=== PATIENT | female | born 1975 | race Caucasian/White ===

== ENCOUNTER → 2020-09-29 | Outpatient (CLI) | payer MEDICARE, OTHER ==
[~2020-09-29] MED LIST: CIPRO500 MG PO; FLOMAX 0.4 MG0.4 MG PO; HYDROCODON-ACE1 EAC2 PO; NAPROSYN500 MG PO; NORCO 5-325 TA1 EACH PO; ONDANSETRON ODT4 MG SL; PERCOCET 5-3251 EACH PO; ZOFRAN ODT 4 MG4 MG SL
== END ==
LOC: CT 07:22
DX: N20.0 Calculus of kidney (principal); R35.1 Nocturia
CPT/HCPCS: 36415; 82565; Q9967

== ENCOUNTER → 2020-10-12 | Outpatient (CLI) | payer MEDICARE, OTHER | LOC: SLEEP 13:24 | DX: G47.30 Sleep apnea, unspecified (principal) | CPT/HCPCS: 95810 ==

== ENCOUNTER → 2020-11-20 | Outpatient (CLI) | payer MEDICARE, OTHER ==
[2020-11-20 12:43] LABS: HEMOGLOBIN 13.5 gm/dl (12.3-15.3); RED BLOOD COUNT 4.42 M/UL (4.00-5.10); WHITE BLOOD COUNT 6.2 K/UL (4.5-11.0)
[2020-11-20 13:10] LABS: BUN/CREATININE RATIO 28 (0-10)
== END ==
LOC: LAB 11:45
PROVIDERS: Nurse Practitioner
DX: N20.0 Calculus of kidney (principal); E55.9 Vitamin D deficiency, unspecified; R53.83 Other fatigue; G35 Multiple sclerosis; R53.1 Weakness; E83.59 Other disorders of calcium metabolism; N29 Other disorders of kidney and ureter in diseases classified elsewhere; E53.1 Pyridoxine deficiency; E53.8 Deficiency of other specified B group vitamins
CPT/HCPCS: 36415; 74018; 80053; 82525; 82607; 82746; 84207; 84425; 84443; 85025

== ENCOUNTER → 2021-03-22 | Outpatient (CLI) | payer MEDICARE | LOC: KOH-I 13:38 | DX: G35 Multiple sclerosis (principal) | CPT/HCPCS: 70551; 72141 ==

== ENCOUNTER 2021-04-17 11:12 | Inpatient (IN) | payer MEDICARE ==
[~2021-04-17] VITALS: Ht 152.4 cm; Wt 106.0 kg
[2021-04-17 12:34] LABS: HEMOGLOBIN 15.2 gm/dl (12.3-15.3); RED BLOOD COUNT 4.92 M/UL (4.00-5.10); WHITE BLOOD COUNT 8.2 K/UL (4.5-11.0)
[2021-04-17 12:56] LABS: BUN/CREATININE RATIO 17 (0-10)
[2021-04-17] MEDS ORDERED: AUBAGIO14 MG PO (14:35)
[2021-04-17] MEDS ORDERED: ZOFRAN ODT 4 MG4 MG PO (14:35)
[2021-04-17] MEDS ORDERED: AMPYRA10 MG PO (14:36)
[2021-04-17] MEDS ORDERED: BACLOFEN20 MG PO (14:36)
[2021-04-17] MEDS ORDERED: MUPIROCIN22 GM TP (14:36)
[2021-04-17] MEDS ORDERED: LISINOPRIL5 MG PO (14:37)
[2021-04-17] MEDS ORDERED: CYMBALTA 30 MG30 MG PO (14:37)
[2021-04-17] MEDS ORDERED: GABAPENTIN600 MG PO (14:37)
[2021-04-17] MEDS ORDERED: BUPROPION HCL150 MG PO (14:38)
[2021-04-17] MEDS ORDERED: FARXIGA10 MG PO (14:38)
[2021-04-17] MEDS ORDERED: ROPINIROLE HCL1 MG PO (14:39)
[2021-04-17] MEDS ORDERED: CRESTOR10 MG PO (14:39)
[2021-04-17] MEDS ORDERED: LANTUS SOL100 UNIT/1 SQ (14:40)
[2021-04-17] MEDS ORDERED: MELOXICAM15 MG PO (14:40)
[2021-04-17] MEDS ORDERED: MACROBID 100 M100 M1 PO (14:41)
[2021-04-17] MEDS ORDERED: NOVOLIN 70100 UNIT/1 SQ (14:41)
[2021-04-17] MEDS ORDERED: AMITRIPTYLINE H50 MG PO (14:42)
[2021-04-17] MEDS ORDERED: VITAMIN D21250 MCG PO (14:42)
[2021-04-17] MEDS ORDERED: CYCLOBENZAPRINE10 MG PO (14:42)
[2021-04-17] MEDS ORDERED: CHLORTHALIDONE25 MG PO (14:43)
[2021-04-17] MEDS ORDERED: PROTONIX40 MG PO (14:43)
[2021-04-17] MEDS ORDERED: LEVOTHYROXINE50 MCG PO (14:43)
[2021-04-18 06:26] LABS: HEMOGLOBIN 13.2 gm/dl (12.3-15.3); RED BLOOD COUNT 4.33 M/UL (4.00-5.10); WHITE BLOOD COUNT 5.6 K/UL (4.5-11.0)
[2021-04-18 06:51] LABS: BUN/CREATININE RATIO 36 (0-10)
[2021-04-19 06:27] LABS: BUN/CREATININE RATIO 49 (0-10)
[2021-04-20 07:07] LABS: HEMOGLOBIN 13.4 gm/dl (12.3-15.3); RED BLOOD COUNT 4.58 M/UL (4.00-5.10)
[2021-04-20 07:11] LABS: BUN/CREATININE RATIO 53 (0-10)
[2021-04-21 05:29] LABS: HEMOGLOBIN 12.9 gm/dl (12.3-15.3); RED BLOOD COUNT 4.38 M/UL (4.00-5.10); WHITE BLOOD COUNT 11.8 K/UL (4.5-11.0)
[2021-04-21 05:51] LABS: BUN/CREATININE RATIO 59 (0-10)
[2021-04-22 05:21] LABS: HEMOGLOBIN 13.6 gm/dl (12.3-15.3); RED BLOOD COUNT 4.52 M/UL (4.00-5.10); WHITE BLOOD COUNT 9.8 K/UL (4.5-11.0)
[2021-04-22 06:03] LABS: BUN/CREATININE RATIO 57 (0-10)
[2021-04-23 05:04] LABS: HEMOGLOBIN 14.8 gm/dl (12.3-15.3); RED BLOOD COUNT 4.88 M/UL (4.00-5.10); WHITE BLOOD COUNT 11.7 K/UL (4.5-11.0)
[2021-04-23 05:23] LABS: BUN/CREATININE RATIO 56 (0-10)
[2021-04-24 04:53] LABS: HEMOGLOBIN 13.5 gm/dl (12.3-15.3); RED BLOOD COUNT 4.66 M/UL (4.00-5.10)
[2021-04-24 04:54] LABS: BUN/CREATININE RATIO 53 (0-10)
[2021-04-24 04:58] LABS: WHITE BLOOD COUNT 15.1 K/UL (4.5-11.0)
[2021-04-25 05:05] LABS: HEMOGLOBIN 14.7 gm/dl (12.3-15.3); RED BLOOD COUNT 4.86 M/UL (4.00-5.10)
[2021-04-25 05:07] LABS: WHITE BLOOD COUNT 10.4 K/UL (4.5-11.0)
[2021-04-25 05:47] LABS: BUN/CREATININE RATIO 63 (0-10)
[2021-04-26 07:43] LABS: HEMOGLOBIN 15.6 gm/dl (12.3-15.3); WHITE BLOOD COUNT 12.5 K/UL (4.5-11.0)
[2021-04-26 07:45] LABS: RED BLOOD COUNT 5.48 M/UL (4.00-5.10)
[2021-04-26 08:10] LABS: BUN/CREATININE RATIO 86 (0-10)
[2021-04-27 05:12] LABS: HEMOGLOBIN 16.5 gm/dl (12.3-15.3); RED BLOOD COUNT 5.52 M/UL (4.00-5.10); WHITE BLOOD COUNT 10.9 K/UL (4.5-11.0)
[2021-04-27 05:35] LABS: BUN/CREATININE RATIO 94 (0-10)
[2021-04-28 05:49] LABS: RED BLOOD COUNT 4.98 M/UL (4.00-5.10); WHITE BLOOD COUNT 9.9 K/UL (4.5-11.0)
[2021-04-28 05:52] LABS: HEMOGLOBIN 14.5 gm/dl (12.3-15.3)
[2021-04-28 06:04] LABS: BUN/CREATININE RATIO 47 (0-10)
[2021-04-29 05:32] LABS: HEMOGLOBIN 15.6 gm/dl (12.3-15.3); RED BLOOD COUNT 5.2 M/UL (4.00-5.10)
[2021-04-29 05:45] LABS: BUN/CREATININE RATIO 45 (0-10)
[2021-04-30 04:51] LABS: BUN/CREATININE RATIO 43 (0-10)
[2021-04-30 04:52] LABS: HEMOGLOBIN 15.2 gm/dl (12.3-15.3); WHITE BLOOD COUNT 12.1 K/UL (4.5-11.0)
--- NOTE | 2021-04-30 10:59 | NUR ---
0925 MD AT BEDSIDE, AMNA 1CC GIVEN 0925 MD AT BEDSIDE, ANE. AT BEDSIDE FOR INTUBATION 09 PROPOFOL 10ML GIVEN 927 PROPOFOL 5ML GIVEN 928 PROPOFOL 10ML GIVEN 929 PROPOFOL 10ML GIVEN 931 INTUBATED 22 AT LIP, SATS 92%, SEE RESP FOR VENT SETTTINGS 0935 CHEST XRAY CONFIRMED PLACEMENT 0938 METOPROLOL IV 5 GIVEN
[2021-05-01 09:56] LABS: HEMOGLOBIN 14.8 gm/dl (12.3-15.3); RED BLOOD COUNT 4.86 M/UL (4.00-5.10)
[2021-05-01 09:57] LABS: WHITE BLOOD COUNT 25.6 K/UL (4.5-11.0)
[2021-05-01 10:21] LABS: BUN/CREATININE RATIO 48 (0-10)
[2021-05-02 05:57] LABS: HEMOGLOBIN 13.6 gm/dl (12.3-15.3); RED BLOOD COUNT 4.66 M/UL (4.00-5.10)
[2021-05-02 06:04] LABS: WHITE BLOOD COUNT 13.5 K/UL (4.5-11.0)
[2021-05-02 06:42] LABS: BUN/CREATININE RATIO 32 (0-10)
[2021-05-03 05:47] LABS: HEMOGLOBIN 12.3 gm/dl (12.3-15.3); RED BLOOD COUNT 4.24 M/UL (4.00-5.10); WHITE BLOOD COUNT 16.7 K/UL (4.5-11.0)
[2021-05-03 06:10] LABS: BUN/CREATININE RATIO 55 (0-10)
[2021-05-04 05:47] LABS: HEMOGLOBIN 12.9 gm/dl (12.3-15.3); RED BLOOD COUNT 4.24 M/UL (4.00-5.10); WHITE BLOOD COUNT 16.8 K/UL (4.5-11.0)
[2021-05-04 05:53] LABS: BUN/CREATININE RATIO 57 (0-10)
[2021-05-05 05:52] LABS: HEMOGLOBIN 12.5 gm/dl (12.3-15.3); RED BLOOD COUNT 4.14 M/UL (4.00-5.10)
[2021-05-05 06:07] LABS: WHITE BLOOD COUNT 9.9 K/UL (4.5-11.0)
[2021-05-05 06:18] LABS: BUN/CREATININE RATIO 49 (0-10)
[2021-05-06 05:52] LABS: HEMOGLOBIN 13.5 gm/dl (12.3-15.3); RED BLOOD COUNT 4.5 M/UL (4.00-5.10)
[2021-05-06 05:57] LABS: WHITE BLOOD COUNT 21.1 K/UL (4.5-11.0)
[2021-05-06 06:52] LABS: BUN/CREATININE RATIO 44 (0-10)
[2021-05-07 04:55] LABS: HEMOGLOBIN 12.2 gm/dl (12.3-15.3); RED BLOOD COUNT 4.07 M/UL (4.00-5.10)
[2021-05-07 05:08] LABS: WHITE BLOOD COUNT 15.5 K/UL (4.5-11.0)
[2021-05-07 05:10] LABS: BUN/CREATININE RATIO 64 (0-10)
[2021-05-08 04:55] LABS: HEMOGLOBIN 11.4 gm/dl (12.3-15.3); RED BLOOD COUNT 3.87 M/UL (4.00-5.10)
[2021-05-08 05:01] LABS: WHITE BLOOD COUNT 10.8 K/UL (4.5-11.0)
[2021-05-08 05:17] LABS: BUN/CREATININE RATIO 105 (0-10)
[2021-05-09 05:36] LABS: HEMOGLOBIN 10.8 gm/dl (12.3-15.3); RED BLOOD COUNT 3.61 M/UL (4.00-5.10)
[2021-05-09 05:59] LABS: BUN/CREATININE RATIO 118 (0-10)
[2021-05-10 05:26] LABS: RED BLOOD COUNT 3.4 M/UL (4.00-5.10)
[2021-05-10 05:52] LABS: BUN/CREATININE RATIO 135 (0-10)
[2021-05-11 05:28] LABS: HEMOGLOBIN 10.2 gm/dl (12.3-15.3); RED BLOOD COUNT 3.39 M/UL (4.00-5.10); WHITE BLOOD COUNT 5.7 K/UL (4.5-11.0)
[2021-05-11 05:46] LABS: BUN/CREATININE RATIO 110 (0-10)
[2021-05-12 05:10] LABS: HEMOGLOBIN 10.3 gm/dl (12.3-15.3); RED BLOOD COUNT 3.5 M/UL (4.00-5.10)
[2021-05-12 05:21] LABS: WHITE BLOOD COUNT 7.3 K/UL (4.5-11.0)
[2021-05-12 05:36] LABS: BUN/CREATININE RATIO 106 (0-10)
[2021-05-13 05:47] LABS: BUN/CREATININE RATIO 89 (0-10)
[2021-05-13 12:39] LABS: HEMOGLOBIN 11.1 gm/dl (12.3-15.3); RED BLOOD COUNT 3.69 M/UL (4.00-5.10); WHITE BLOOD COUNT 7.1 K/UL (4.5-11.0)
[2021-05-14 05:44] LABS: BUN/CREATININE RATIO 72 (0-10)
[2021-05-14 10:21] LABS: ADENOVIRUS F 40/41 Not Detected (Negative); ASTROVIRUS Not Detected (Negative); CAMPYLOBACTER Not Detected (Negative); CRYPTOSPORIDIUM Not Detected (Negative); E.COLI 0157 Not Detected (Negative); ENTAMOEBA HISTOLYTICA Not Detected (Negative); ENTEROAGGREGATIVE E.COLI (EAEC Not Detected (Negative); ENTEROPATHOGENIC E.COLI (EPEC) Not Detected (Negative); ENTEROTOXIGENIC E.COLI (ETEC) Not Detected (Negative); GIARDIA LAMBLIA Not Detected (Negative); NOROVIRUS GI/GII Not Detected (Negative); PLESIOMONAS SHIGELLOIDES Not Detected (Negative); ROTOVIRUS A Not Detected (Negative); SALMONELLA Not Detected (Negative); SAPOVIRUS Not Detected (Negative); SHIG/ENTEROINVAS.ECOLI (EIEC) Not Detected (Negative); SHIGA-LIK TOX.PRO.E.COLI (STEC Not Detected (Negative); VIBRIO Not Detected (Negative); VIBRIO CHOLERAE Not Detected (Negative); YERSINIA ENTEROCOLITICA Not Detected (Negative)
[2021-05-14 13:52] LABS: CLOSTRIDIUM DIFFICILE TOX A/B DETECTED (Negative)
[2021-05-15 05:29] LABS: HEMOGLOBIN 10.9 gm/dl (12.3-15.3); RED BLOOD COUNT 3.55 M/UL (4.00-5.10); WHITE BLOOD COUNT 5.5 K/UL (4.5-11.0)
[2021-05-15 05:50] LABS: BUN/CREATININE RATIO 59 (0-10)
[2021-05-16 09:15] LABS: HEMOGLOBIN 11.1 gm/dl (12.3-15.3); RED BLOOD COUNT 3.62 M/UL (4.00-5.10); WHITE BLOOD COUNT 6.7 K/UL (4.5-11.0)
[2021-05-16 09:23] LABS: HEMOGLOBIN 10.9 gm/dl (12.3-15.3); RED BLOOD COUNT 3.53 M/UL (4.00-5.10); WHITE BLOOD COUNT 6.5 K/UL (4.5-11.0)
[2021-05-16 10:01] LABS: BUN/CREATININE RATIO 57 (0-10)
[2021-05-16 16:09] LABS: BUN/CREATININE RATIO 53 (0-10)
[2021-05-17 01:56] LABS: HEMOGLOBIN 10.7 gm/dl (12.3-15.3); RED BLOOD COUNT 3.4 M/UL (4.00-5.10); WHITE BLOOD COUNT 6.3 K/UL (4.5-11.0)
[2021-05-18 09:49] LABS: HEMOGLOBIN 12.3 gm/dl (12.3-15.3)
[2021-05-18 09:50] LABS: RED BLOOD COUNT 3.94 M/UL (4.00-5.10); WHITE BLOOD COUNT 10.2 K/UL (4.5-11.0)
[2021-05-18 10:06] LABS: BUN/CREATININE RATIO 38 (0-10)
[2021-05-19 11:28] LABS: HEMOGLOBIN 11.4 gm/dl (12.3-15.3); RED BLOOD COUNT 3.74 M/UL (4.00-5.10); WHITE BLOOD COUNT 7.7 K/UL (4.5-11.0)
[2021-05-19 12:12] LABS: BUN/CREATININE RATIO 49 (0-10)
[2021-05-20 05:47] LABS: RED BLOOD COUNT 3.65 M/UL (4.00-5.10); WHITE BLOOD COUNT 7.8 K/UL (4.5-11.0)
[2021-05-20 06:12] LABS: BUN/CREATININE RATIO 50 (0-10)
[2021-05-21 05:11] LABS: HEMOGLOBIN 10.7 gm/dl (12.3-15.3); RED BLOOD COUNT 3.51 M/UL (4.00-5.10); WHITE BLOOD COUNT 7.8 K/UL (4.5-11.0)
[2021-05-21 05:33] LABS: BUN/CREATININE RATIO 65 (0-10)
[2021-05-22 05:02] LABS: HEMOGLOBIN 11.9 gm/dl (12.3-15.3); RED BLOOD COUNT 3.82 M/UL (4.00-5.10)
[2021-05-22 05:04] LABS: WHITE BLOOD COUNT 10.4 K/UL (4.5-11.0)
[2021-05-22 05:39] LABS: BUN/CREATININE RATIO 46 (0-10)
[2021-05-23 05:00] LABS: HEMOGLOBIN 12.1 gm/dl (12.3-15.3); RED BLOOD COUNT 3.95 M/UL (4.00-5.10); WHITE BLOOD COUNT 9.8 K/UL (4.5-11.0)
[2021-05-23 05:34] LABS: BUN/CREATININE RATIO 39 (0-10)
[2021-05-24 06:17] LABS: HEMOGLOBIN 11.2 gm/dl (12.3-15.3); RED BLOOD COUNT 3.65 M/UL (4.00-5.10); WHITE BLOOD COUNT 9.8 K/UL (4.5-11.0)
[2021-05-24 06:50] LABS: BUN/CREATININE RATIO 87 (0-10)
[2021-05-25 06:25] LABS: BUN/CREATININE RATIO 58 (0-10)
[2021-05-25 06:32] LABS: HEMOGLOBIN 10.2 gm/dl (12.3-15.3); WHITE BLOOD COUNT 10.3 K/UL (4.5-11.0)
[2021-05-25 08:36] LABS: RED BLOOD COUNT 3.09 M/UL (4.00-5.10)
[2021-05-26 05:23] LABS: HEMOGLOBIN 10.9 gm/dl (12.3-15.3); WHITE BLOOD COUNT 12.8 K/UL (4.5-11.0)
[2021-05-26 05:28] LABS: RED BLOOD COUNT 3.5 M/UL (4.00-5.10)
[2021-05-26 05:45] LABS: BUN/CREATININE RATIO 55 (0-10)
[2021-05-27 05:14] LABS: HEMOGLOBIN 10.8 gm/dl (12.3-15.3); RED BLOOD COUNT 3.51 M/UL (4.00-5.10); WHITE BLOOD COUNT 7.3 K/UL (4.5-11.0)
[2021-05-27 05:49] LABS: BUN/CREATININE RATIO 59 (0-10)
[2021-05-28 04:48] LABS: HEMOGLOBIN 11.2 gm/dl (12.3-15.3); RED BLOOD COUNT 3.55 M/UL (4.00-5.10)
[2021-05-28 04:50] LABS: WHITE BLOOD COUNT 9.7 K/UL (4.5-11.0)
[2021-05-28 05:21] LABS: BUN/CREATININE RATIO 71 (0-10)
[2021-05-29 05:11] LABS: HEMOGLOBIN 10.8 gm/dl (12.3-15.3); RED BLOOD COUNT 3.44 M/UL (4.00-5.10); WHITE BLOOD COUNT 9.2 K/UL (4.5-11.0)
[2021-05-29 05:37] LABS: BUN/CREATININE RATIO 103 (0-10)
[2021-05-30 06:06] LABS: HEMOGLOBIN 10.6 gm/dl (12.3-15.3); RED BLOOD COUNT 3.4 M/UL (4.00-5.10)
[2021-05-30 06:13] LABS: WHITE BLOOD COUNT 11.6 K/UL (4.5-11.0)
[2021-05-30 06:24] LABS: BUN/CREATININE RATIO 76 (0-10)
[2021-05-31 06:32] LABS: HEMOGLOBIN 9.3 gm/dl (12.3-15.3)
[2021-05-31 06:44] LABS: RED BLOOD COUNT 2.82 M/UL (4.00-5.10)
[2021-05-31 07:10] LABS: BUN/CREATININE RATIO 73 (0-10)
[2021-06-02 05:40] LABS: HEMOGLOBIN 9.6 gm/dl (12.3-15.3); RED BLOOD COUNT 2.92 M/UL (4.00-5.10)
[2021-06-03 08:44] LABS: HEMOGLOBIN 12.9 gm/dl (12.3-15.3); RED BLOOD COUNT 3.23 M/UL (4.00-5.10); WHITE BLOOD COUNT 26.8 K/UL (4.5-11.0)
[2021-06-03 09:01] LABS: BUN/CREATININE RATIO 50 (0-10)
[2021-06-04 05:48] LABS: HEMOGLOBIN 11.8 gm/dl (12.3-15.3); RED BLOOD COUNT 3.23 M/UL (4.00-5.10)
[2021-06-04 06:02] LABS: BUN/CREATININE RATIO 76 (0-10)
[2021-06-05 05:55] LABS: RED BLOOD COUNT 3.33 M/UL (4.00-5.10)
[2021-06-05 06:01] LABS: HEMOGLOBIN 13.9 gm/dl (12.3-15.3); WHITE BLOOD COUNT 34.9 K/UL (4.5-11.0)
[2021-06-05 07:24] LABS: BUN/CREATININE RATIO 75 (0-10)
--- NOTE | 2021-06-05 21:55 | NUR ---
2100: AMY AT BEDSIDE, DURING PROCESS OF CHANGING PT QUINTANA CATH PER PROTOCOL PT BEGAN TO DESAT, O2-50%. RT IN ROOM BEGAN TO BAG PT. MD AWARE OF PTS CURRENT DETERIAZTION DURING QUINTANA CHANGE, AWARE OF ALL PRESSORS AND SEDATION MEDS. MD AWARE OF BLOOD GAS RESULTS. SEE ORDERS. FAMILY IS AT BEDSIDE, SPOKE WITH FAMILY ABOUT PTS CURRENT CONDITION AND MADE AWARE OF HOW CRITICAL PT IS.
[2021-06-05 23:26] LABS: BUN/CREATININE RATIO 61 (0-10)
[2021-06-06 07:11] LABS: HEMOGLOBIN 11.6 gm/dl (12.3-15.3); RED BLOOD COUNT 2.7 M/UL (4.00-5.10); WHITE BLOOD COUNT 23.3 K/UL (4.5-11.0)
[2021-06-06 08:04] LABS: BUN/CREATININE RATIO 63 (0-10)
[2021-06-08 07:12] LABS: HBSAG SCREEN Negative (Negative); HEP A AB, IGM Negative (Negative); HEP B CORE AB, IGM Negative (Negative); HEP C VIRUS AB <0.1 (0.0-0.9)
[2021-06-08 15:27] LABS: WHITE BLOOD COUNT 43.5 K/UL (4.5-11.0)
== END 2021-06-06 12:10 | disposition expired | DRG 4 ==
LOC: ER1 11:12 → CCU 13:36 → CDU 13:36 → M/S 13:36 → CCU 04-20 16:14
PROVIDERS: Emergency Medicine; Internal Medicine; Internal Medicine Critical Care Medicine; Internal Medicine Gastroenterology; Internal Medicine Infectious Disease; Internal Medicine Pulmonary Disease; Physician Assistant; ADMIT Internal Medicine
PROC: XW033E5 Introduction of Remdesivir Anti-infective into Peripheral Vein, Percutaneous Approach, New Technology Group 5 (ICD-10-PCS; principal; 2021-04-17)
PROC: 8E0ZXY6 Isolation (ICD-10-PCS; 2021-04-17)
PROC: XW033G6 Introduction of REGN-COV2 Monoclonal Antibody into Peripheral Vein, Percutaneous Approach, New Technology Group 6 (ICD-10-PCS; 2021-04-17)
PROC: 5A09557 Assistance with Respiratory Ventilation, Greater than 96 Consecutive Hours, Continuous Positive Airway Pressure (ICD-10-PCS; 2021-04-22)
PROC: 3E0333Z Introduction of Anti-inflammatory into Peripheral Vein, Percutaneous Approach (ICD-10-PCS; 2021-04-23)
PROC: 0W9930Z Drainage of Right Pleural Cavity with Drainage Device, Percutaneous Approach (ICD-10-PCS; 2021-04-23)
PROC: BB4BZZZ Ultrasonography of Pleura (ICD-10-PCS; 2021-04-23)
PROC: 3E033XZ Introduction of Vasopressor into Peripheral Vein, Percutaneous Approach (ICD-10-PCS; 2021-04-23)
PROC: 0DH67UZ Insertion of Feeding Device into Stomach, Via Natural or Artificial Opening (ICD-10-PCS; 2021-04-27)
PROC: 3E0G76Z Introduction of Nutritional Substance into Upper GI, Via Natural or Artificial Opening (ICD-10-PCS; 2021-04-27)
PROC: 05PYX3Z Removal of Infusion Device from Upper Vein, External Approach (ICD-10-PCS; 2021-04-30)
PROC: 05H533Z Insertion of Infusion Device into Right Subclavian Vein, Percutaneous Approach (ICD-10-PCS; 2021-04-30)
PROC: B546ZZA Ultrasonography of Right Subclavian Vein, Guidance (ICD-10-PCS; 2021-04-30)
PROC: 02HV33Z Insertion of Infusion Device into Superior Vena Cava, Percutaneous Approach (ICD-10-PCS; 2021-04-30)
PROC: B548ZZA Ultrasonography of Superior Vena Cava, Guidance (ICD-10-PCS; 2021-04-30)
PROC: 0BH17EZ Insertion of Endotracheal Airway into Trachea, Via Natural or Artificial Opening (ICD-10-PCS; 2021-04-30)
PROC: 5A1955Z Respiratory Ventilation, Greater than 96 Consecutive Hours (ICD-10-PCS; 2021-04-30)
PROC: B24BZZZ Ultrasonography of Heart with Aorta (ICD-10-PCS; 2021-05-01)
PROC: 0B113F4 Bypass Trachea to Cutaneous with Tracheostomy Device, Percutaneous Approach (ICD-10-PCS; 2021-05-25)
PROC: 5A12012 Performance of Cardiac Output, Single, Manual (ICD-10-PCS; 2021-06-06)
DX: U07.1 COVID-19 (principal); J95.811 Postprocedural pneumothorax; J12.82 Pneumonia due to coronavirus disease 2019; J80 Acute respiratory distress syndrome; J15.9 Unspecified bacterial pneumonia; A41.89 Other specified sepsis; G93.41 Metabolic encephalopathy; R65.21 Severe sepsis with septic shock; I50.33 Acute on chronic diastolic (congestive) heart failure; E87.1 Hypo-osmolality and hyponatremia; N17.9 Acute kidney failure, unspecified; D84.821 Immunodeficiency due to drugs; A04.72 Enterocolitis due to Clostridium difficile, not specified as recurrent; E87.4 Mixed disorder of acid-base balance; E87.3 Alkalosis; J95.859 Other complication of respirator [ventilator]; J94.8 Other specified pleural conditions; N30.00 Acute cystitis without hematuria; R57.8 Other shock; I07.1 Rheumatic tricuspid insufficiency; I27.20 Pulmonary hypertension, unspecified; I37.1 Nonrheumatic pulmonary valve insufficiency; T81.82XA Emphysema (subcutaneous) resulting from a procedure, initial encounter; T38.0X5A Adverse effect of glucocorticoids and synthetic analogues, initial encounter; E11.65 Type 2 diabetes mellitus with hyperglycemia; E86.0 Dehydration; G35 Multiple sclerosis; E66.9 Obesity, unspecified; E88.09 Other disorders of plasma-protein metabolism, not elsewhere classified; E87.70 Fluid overload, unspecified; D69.6 Thrombocytopenia, unspecified; T39.95XA Adverse effect of unspecified nonopioid analgesic, antipyretic and antirheumatic, initial encounter; I11.0 Hypertensive heart disease with heart failure; L89.152 Pressure ulcer of sacral region, stage 2; E87.6 Hypokalemia; E83.42 Hypomagnesemia; F41.9 Anxiety disorder, unspecified; B95.62 Methicillin resistant Staphylococcus aureus infection as the cause of diseases classified elsewhere; J04.10 Acute tracheitis without obstruction; E03.9 Hypothyroidism, unspecified; G83.89 Other specified paralytic syndromes; J45.909 Unspecified asthma, uncomplicated; R00.1 Bradycardia, unspecified; E11.649 Type 2 diabetes mellitus with hypoglycemia without coma; L89.322 Pressure ulcer of left buttock, stage 2; L89.312 Pressure ulcer of right buttock, stage 2; E78.00 Pure hypercholesterolemia, unspecified; L89.46 Pressure-induced deep tissue damage of contiguous site of back, buttock and hip; Z90.710 Acquired absence of both cervix and uterus; Z98.84 Bariatric surgery status; Z23 Encounter for immunization; Z88.1 Allergy status to other antibiotic agents; Z88.2 Allergy status to sulfonamides; Z88.8 Allergy status to other drugs, medicaments and biological substances; Z88.0 Allergy status to penicillin; Z83.6 Family history of other diseases of the respiratory system; Z79.4 Long term (current) use of insulin; Z74.01 Bed confinement status; Z68.39 Body mass index [BMI] 39.0-39.9, adult
CPT/HCPCS: ECHO; 31500; 36415; 36600; 70450; 71045; 71275; 74018; 76700; 80048; 80053; 80061; 80074; 80202; 81001; 82550; 82553; 82728; 82803; 82962; 83036; 83605; 83690; 83735; 83874; 83880; 84100; 84132; 84439; 84443; 84478; 84481; 84484; 85007; 85025; 85027; 85379; 85610; 85730; 86140; 87040; 87070; 87077; 87081; 87086; 87186; 87205; 87324; 87449; 87507; 93005; 93306; 93970; 94003; 94640; 94645; 94660; 94664; 94760; 96374; 99285; A6212; C1769; C9113; J0171; J0692; J1100; J1120; J1160; J1650; J1720; J1940; J2020; J2060; J2185; J2248; J2250; J2270; J2370; J2704; J2920; J2997; J3010; J3370; J3465; J3475; J3480; J7030; J7040; J7050; J7070; J7120; P9047; Q9967